=== PATIENT | male | born 1960 | race Caucasian/White ===

== ENCOUNTER → 2018-12-27 09:05 | Outpatient (CLI) | payer BC, SELFPAY ==
--- NOTE | 2018-12-27 14:56 | PM.TREADMILL ---
Cardiac Stress Test Report Referral & Results Date Patient Seen: 12/27/18 Time Patient Seen: 14:30 Requesting provider: Marta Casarez Indication: RBBB, chest discomfort Rest ECG: RBBB Procedure Note: Today following both written and verbal informed consent the patient was exercised according to a standard Mumtaz protocol patient went for a total of 10 minutes 41 seconds achieving a maximum heart rate of 166 maximum systolic blood pressure of 158. This is approximately 12.8 METs. Exercise was terminated at this point because of fatigue. Patient was also given Cardiolite through a previously started Hep-Lock IV by the nuclear powerplant supervisor approximately 1 minute prior to the cessation of exercise. No signs or symptoms of angina. 1-[address] deviations in precordial leads, resolving rapidly with rest. Occasional PVCs that increased with exercise. NORA-10% on active scale. Impression: Intermediate probability for ischemia. Will await perfusion imaging. Please note: Actual ECG tracings can be found in the PACS system.
--- NOTE | 2018-12-27 17:26 | DI.NM.S_ITS ---
DATE OF SERVICE: 12/27/2018 PROCEDURE: Exercise perfusion study. INDICATIONS: Left arm pain, chest pain, underlying hypertension, obesity. RADIOPHARMACEUTICAL: 25.3 mCi technetium-99m Myoview IV was injected at stress and 9.1 mCi technetium-99m Myoview IV was injected at rest. It was a 1-day protocol. CARDIAC STRESS: Patient underwent exercise perfusion study under the supervision of an attending staff. He walked on Mumtaz protocol for 10 minutes 41 seconds achieved 12.8 METs of workload, 101% of target heart rate, and normal blood pressure response. Baseline rhythm was sinus with underlying right bundle branch block and mild sinus bradycardia. During stress test, there was significant artifacts. There was secondary repolarization changes. In the recovery after 1 minute, I don't see any obvious new ischemic changes. Patient has intermittent PVCs without any ventricular tachycardia. No anginal symptoms were reported. RAW DATA: Patient's weight is 217 pounds. There was increased of diaphragmatic activity. GATED STUDY: Resting LV ejection fraction 60% and stress LV ejection fraction 72% without any obvious wall motion abnormalities. Resting end-diastolic volume 182 mL. No transient ischemic dilatation. TID ratio is 0.68, which is within normal limits. Lung/heart ratio is 0.43, which is within normal limits. MYOCARDIAL PERFUSION SCAN: Stress supine, resting supine, and stress prone images were compared to each other. Stress supine and resting supine images revealed small-sized mildly decreased perfusion of inferior wall, inferior apex, distal inferolateral wall. Resting images also revealed distal anterior wall defect. During prone images, above-mentioned abnormalities were significantly improved. However patient remained have minimally decreased perfusion of distal inferolateral wall. No obvious reversible ischemia. CONCLUSION: I will call this study likely a normal myocardial perfusion study with evidence of diaphragmatic tissue attenuation artifact as stated above which got significantly improved during prone images. No reversible ischemia. Good exercise tolerance. Patient achieved 12.8 METs of workload and functional aerobic impairment -10%. No anginal symptoms. Stress left ventricular (LV) ejection fraction 72%. Overall, this is a low-risk myocardial perfusion scan. Jose Woo - Monica/ doc#: [id number]/job#: [id number] dd: 12/27/2018 17:00:00 dt: 12/27/2018 17:17:00 DICTATING MD/COPIES TO: Lupe Hubbard MD COPIES MNE: [id number]
== END ==
PROVIDERS: Family Provider Student in an Organized Health Care Education/Training Program; PCP Student in an Organized Health Care Education/Training Program; Visit Provider Nurse Practitioner Family
DX: R07.89 Other chest pain (principal); M79.602 Pain in left arm; I10 Essential (primary) hypertension; E66.9 Obesity, unspecified; I45.10 Unspecified right bundle-branch block
CPT/HCPCS: 78452; 93016; 93017; 93018; A9502